=== PATIENT | female | born 1945 | race Caucasian/White ===

== ENCOUNTER 2021-03-02 12:20 | Emergency (ER) | payer MEDICARE, OTHER ==
[2021-03-02 13:22] LABS: Urine Blood Negative (Negative); Urine Glucose Negative (Negative); Urine Protein Negative (Negative); Urine pH 5.5 (5.0-7.0)
[2021-03-02 13:39] LABS: Absolute Lymphocytes (CBC) 2.8 K/uL (0.7-4.9); Basophils % 0.7 % (0-1.3); Hematocrit 44.5 % (36.0-45.0); Lymphocytes % 34.9 % (15.3-44.8); MPV 8.2 fL (7.6-11.3); RBC Red Blood Cell Count 5.24 M/uL (3.86-4.86)
[2021-03-02 14:27] LABS: ALT/SGPT 28 U/L (12-78); AST/SGOT 18 U/L (15-37); Albumin 3.8 g/dL (3.4-5.0); Alkaline Phosphatase 66 U/L (45-117); BUN Blood Urea Nitrogen 10 mg/dL (7-18); Bicarbonate 29 mmol/L (21-32); Bilirubin Direct 0.2 mg/dL (0-0.2); Bilirubin Total 0.5 mg/dL (0.2-1.0); Glucose Level 88 mg/dL (74-106); Lipase 143 U/L (73-393); Protein, Total 7.5 g/dL (6.4-8.2); Sodium Level 140 mmol/L (136-145)
--- NOTE | 2021-03-02 14:57 | RAD REPORT ---
EXAM DESCRIPTION: CTAbdomen Pelvis W Contrast - 03/02/2021 2:48 pm CLINICAL HISTORY: . Left lower quadrant pain COMPARISON: No comparisons TECHNIQUE: Biphasic CT imaging of the abdomen and pelvis was performed with 100 ml non-ionic IV cont rast. All CT scans are performed using dose optimization technique as appropriate and may include automated exposure control or mA/KV adjustment according to patient size. FINDINGS: Lower chest: No acute abnormality. Liver: No acute abnormality or suspicious lesions. Biliary: No biliary ductal dilatation. Stomach: No significant focal abnormality. Duodenum: No significant focal abnormality. Pancreas: No significant abnormality. Spleen: No significant abnormality. Adrenal: No suspicious lesions. Kidney/ureter: No hydronephrosis. No renal calculi. Retroperitoneum: No retroperitoneal adenopathy. Vascular: No aneurysm. Bowel: No significant focal abnormality. Peritoneum: Encapsulated fatty structure in the left paracolic gutter with surrounding inflammatory c hanges. See image 89, series 602. Bladder: Grossly unremarkable. Reproductive: No adnexal masses. Hysterectomy. Bones: No acute fracture. Moderate disc height loss at L4-5 and L5-S1. Other: n/a IMPRESSION: Left lower quadrant inflammatory changes consistent with epiploic appendagitis.
--- NOTE | 2021-03-02 16:00 | EDPHYS ---
Physician Documentation [facility] Name: Kat Lal Age: 76 yrs Sex: Female : 1945 Arrival Date: 03/02/2021 Time: 12:25 Bed 20 Private MD: Krysta Kirkpatrick ED Physician Sylvester Nicole HPI: 03/03 08:50 This 76 yrs old Female presents to ER via Ambulatory with complaints of kdr Abdominal Pain. 08:50 The patient presents with abdominal pain in the left lower quadrant. Onset: The kdr symptoms/episode began/occurred gradually, 3 day(s) ago. The symptoms do not radiate. Associated signs and symptoms: none. The symptoms are described as achy, crampy, intermittent. Modifying factors: The symptoms are alleviated by nothing, the symptoms are aggravated by movement, touching the area. Severity of pain: At its worst the pain was mild moderate just prior to arrival, in the emergency department the pain is unchanged. The patient has not experienced similar symptoms in the past. The patient has not recently seen a physician. Historical: - Allergies: 03/02 12:57 Sulfa (Sulfonamide Antibiotics); vg1 12:57 Codeine; vg1 - Home Meds: 12:57 Blood Pressure Medicine [Active]; Aspirin Oral [Active]; vg1 - PMHx: 12:57 Hypertensive disorder; vg1 - PSHx: 12:57 None; vg1 - Immunization history:: Adult Immunizations up to date, Client reports receiving the 2nd dose of the Covid vaccine. - Social history:: Smoking status: Patient denies any tobacco usage or history of. ROS: 03/03 08:50 Constitutional: Negative for fever, chills, and weight loss, Eyes: Negative for injury, kdr pain, redness, and discharge, ENT: Negative for injury, pain, and discharge, Neck: Negative for injury, pain, and swelling, Cardiovascular: Negative for chest pain, palpitations, and edema, Respiratory: Negative for shortness of breath, cough, wheezing, and pleuritic chest pain, Back: Negative for injury and pain, : Negative for injury, bleeding, discharge, and swelling, MS/Extremity: Negative for injury and deformity, Skin: Negative for injury, rash, and discoloration, Neuro: Negative for headache, weakness, numbness, tingling, and seizure activity. Psych: Negative for depression, anxiety, suicide ideation, homicidal ideation, and hallucinations, Allergy/Immunology: Negative for hives, rash, and allergies, Endocrine: Negative for neck swelling, polydipsia, polyuria, polyphagia, and marked weight changes, Hematologic/Lymphatic: Negative for swollen nodes, abnormal bleeding, and unusual bruising. Abdomen/GI: Positive for abdominal pain, Negative for nausea, vomiting, and diarrhea. Exam: 08:50 Constitutional: This is a well developed, well nourished patient who is awake, alert, kdr and in no acute distress. Head/Face: Normocephalic, atraumatic. Eyes: Pupils equal round and reactive to light, extra-ocular motions intact. Lids and lashes normal. Conjunctiva and sclera are non-icteric and not injected. Cornea within normal limits. Periorbital areas with no swelling, redness, or edema. Neck: Trachea midline, no thyromegaly or masses palpated, and no cervical lymphadenopathy. Supple, full range of motion without nuchal rigidity, or vertebral point tenderness. No Meningismus. Chest/axilla: Normal chest wall appearance and motion. Nontender with no deformity. No lesions are appreciated. Cardiovascular: Regular rate and rhythm with a normal S1 and S2. No gallops, murmurs, or rubs. Normal PMI, no JVD. No pulse deficits. Respiratory: Lungs have equal breath sounds bilaterally, clear to auscultation and percussion. No rales, rhonchi or wheezes noted. No increased work of breathing, no retractions or nasal flaring. Back: No spinal tenderness. No costovertebral tenderness. Full range of motion. Skin: Warm, dry with normal turgor. Normal color with no rashes, no lesions, and no evidence of cellulitis. MS/ Extremity: Pulses equal, no cyanosis. Neurovascular intact. Full, normal range of motion. Neuro: Awake and alert, GCS 15, oriented to person, place, time, and situation. Cranial nerves II-XII grossly intact. Motor strength 5/5 in all extremities. Sensory grossly intact. Cerebellar exam normal. Normal gait. Psych: Awake, alert, with orientation to person, place and time. Behavior, mood, and affect are within normal limits. 08:50 Abdomen/GI: Inspection: abdomen appears normal, obese Bowel sounds: active, all quadrants, Palpation: soft, mild abdominal tenderness, in the left lower quadrant. Vital Signs: 03/02 12:55 BP 142 / 88; Pulse 83; Resp 16; Temp 96.8; Pulse Ox 98% ; Weight 64.41 kg; Height 5 ft. vg1 1 in. (154.94 cm); Pain 0/10; 13:08 BP 160 / 92; Pulse 90; Resp 16; Temp 97.8; Pulse Ox 98% on R/A; kj1 16:13 BP 131 / 66; Pulse 78; Resp 18; Pulse Ox 97% on R/A; tr6 12:55 Body Mass Index 26.83 (64.41 kg, 154.94 cm) vg1 MDM: 16:00 Patient medically screened. kdr 03/03 08:50 Data reviewed: vital signs, nurses notes, lab test result(s), radiologic studies. kdr Counseling: I had a detailed discussion with the patient and/or guardian regarding: the historical points, exam findings, and any diagnostic results supporting the discharge/admit diagnosis, lab results, radiology results, the need for outpatient follow up. 03/02 13:10 Order name: Basic Metabolic Panel; Complete Time: 15:54 [facility] 03/02 13:10 Order name: CBC with Diff; Complete Time: 14:04 [facility] 03/02 13:10 Order name: Hepatic Function; Complete Time: 15:54 [facility] 03/02 13:10 Order name: Lipase; Complete Time: 15:54 [facility] 03/02 13:16 Order name: Urine Culture [facility] 03/02 13:21 Order name: Urine Dipstick-Ancillary; Complete Time: 14:04 EDMS 03/02 13:10 Order name: IV Saline Lock; Complete Time: 13:16 [facility] 03/02 13:10 Order name: Labs collected and sent; Complete Time: 13:16 [facility] 03/02 13:16 Order name: Urine Dipstick-Ancillary (obtain specimen); Complete Time: 13:21 [facility] 03/02 13:53 Order name: Labs - recollect needed; Complete Time: 13:56 mt 03/02 14:04 Order name: CT Abd/Pelvis - IV Contrast Only; Complete Time: 15:54 kdr Administered Medications: No medications were administered Disposition Summary: 03/02/21 16:00 Discharge Ordered Location: Home kdr Problem: new kdr Symptoms: have improved kdr Condition: Stable kdr Diagnosis - Lower abdominal pain, unspecified - Left lower quadrant kdr - Epiploic appendagitis kdr Followup: kdr - With: Krysta Kirkpatrick MD - When: 2 - 3 days - Reason: If symptoms return, Further diagnostic work-up, Recheck today's complaints, Continuance of care, Re-evaluation by your physician Discharge Instructions: - Discharge Summary Sheet kdr - Abdominal Pain, Adult kdr - Epiploic Appendagitis kdr Forms: - Medication Reconciliation Form kdr - Thank You Letter kdr Prescriptions: - Ibuprofen 600 mg Oral Tablet - take 1 tablet by ORAL route every 6 hours As needed take with food; 30 tablet; kdr Refills: 0, Product Selection Permitted Signatures: Dispatcher [employer] Sylvester Braun MD MD kdr Thompson, Grazyna Vance mt1 Marilee Bo, RN RN vg1 Monserrat Ruvalcaba RN RN tr6
--- NOTE | 2021-03-02 16:00 | ER ---
Nurse's Notes [facility] Name: Kat Lal Age: 76 yrs Sex: Female : 1945 Arrival Date: 03/02/2021 Time: 12:25 Bed 20 Private MD: Krysta Kirkpatrick Diagnosis: Lower abdominal pain, unspecified-Left lower quadrant;Epiploic appendagitis Presentation: 03/02 12:55 Chief complaint: Patient states: ABD pain that began about 3 days ago, denies NVD. Last vg1 BM was last night and was loose. Coronavirus screen: Vaccine status: Patient reports receiving the 2nd dose of the covid vaccine. Ebola Screen: Patient negative for fever greater than or equal to 101.5 degrees Fahrenheit, and additional compatible Ebola Virus Disease symptoms. Initial Sepsis Screen: Does the patient meet any 2 criteria? No. Patient's initial sepsis screen is negative. Does the patient have a suspected source of infection? No. Patient's initial sepsis screen is negative. Risk Assessment: Do you want to hurt yourself or someone else? Patient reports no desire to harm self or others. Onset of symptoms was February 27, 2021. 12:55 Method Of Arrival: Ambulatory vg1 12:55 Acuity: MRAY 3 vg1 Triage Assessment: 12:57 General: Appears in no apparent distress. Behavior is calm, cooperative. Pain: vg1 Complains of pain in left lower quadrant Pain currently is 0 out of 10 on a pain scale. at worst was 10 out of 10 on a pain scale. Pain began 2-3 days ago. GI: Abdomen is round non-distended. Historical: - Allergies: 12:57 Sulfa (Sulfonamide Antibiotics); vg1 12:57 Codeine; vg1 - Home Meds: 12:57 Blood Pressure Medicine [Active]; Aspirin Oral [Active]; vg1 - PMHx: 12:57 Hypertensive disorder; vg1 - PSHx: 12:57 None; vg1 - Immunization history:: Adult Immunizations up to date, Client reports receiving the 2nd dose of the Covid vaccine. - Social history:: Smoking status: Patient denies any tobacco usage or history of. Assessment: 16:00 Reassessment: Patient states feeling better. tr6 Vital Signs: 12:55 BP 142 / 88; Pulse 83; Resp 16; Temp 96.8; Pulse Ox 98% ; Weight 64.41 kg; Height 5 ft. vg1 1 in. (154.94 cm); Pain 0/10; 13:08 BP 160 / 92; Pulse 90; Resp 16; Temp 97.8; Pulse Ox 98% on R/A; kj1 16:13 BP 131 / 66; Pulse 78; Resp 18; Pulse Ox 97% on R/A; tr6 12:55 Body Mass Index 26.83 (64.41 kg, 154.94 cm) 1 ED Course: 12:25 Patient arrived in ED. mr 12:25 Krysta Kirkpatrick MD is Private Physician. mr 12:49 Sylvester Nicole MD is Attending Physician. kdr 12:54 Monserrat Ruvalcaba, MALCOM is Primary Nurse. tr6 12:57 Triage completed. vg1 12:57 Arm band placed on. vg1 13:11 Initial lab(s) drawn, by mi, sent to lab. Inserted saline lock: 20 gauge in left kj1 antecubital area, using aseptic technique. Blood collected. 14:38 Urine Culture Sent. kj1 14:47 CT Abd/Pelvis - IV Contrast Only In Process Unspecified. EDMS 15:59 Krysta Kirkpatrick MD is Referral Physician. kdr 16:15 Patient has correct armband on for positive identification. tr6 16:15 No provider procedures requiring assistance completed. IV discontinued, intact, tr6 bleeding controlled, No redness/swelling at site. Pressure dressing applied. Administered Medications: No medications were administered Outcome: 16:00 Discharge ordered by . kdr 16:15 Discharged to home ambulatory, PT REFUSED WHEELCHAIR AT THIS TIME tr6 16:15 Condition: good 16:15 Discharge instructions given to patient, Instructed on discharge instructions, follow up and referral plans. medication usage, safety practices, Demonstrated understanding of instructions, follow-up care, medications, Prescriptions given X 1. 16:15 Patient left the ED. tr6 Signatures: Dispatcher [employer] EDCA Sylvester Nicole MD MD kdr Rivera, Nelly Gautam Leydis kj1 Marilee Bo, RN RN vg1 Monserrat Ruvalcaba, RN RN tr6
[2021-03-02 16:22] VITALS: TEMP 97.8
[2021-03-02 16:24] VITALS: BP 131/66; O2SAT 97
== END 2021-03-02 16:15 | disposition home or self-care (01) ==
LOC: ER 12:20
DX: K63.89 Other specified diseases of intestine (principal); I10 Essential (primary) hypertension; Z79.82 Long term (current) use of aspirin; Z88.2 Allergy status to sulfonamides; Z88.5 Allergy status to narcotic agent
CPT/HCPCS: 87088; 85025; 87086; 80048; 36415; 80076; 81003; 83690; 74177; 99284; Q9967